=== PATIENT | male | born 1990 | race Two or more races ===

== ENCOUNTER 2020-09-19 18:26 | Emergency (ER) | payer SELFPAY ==
[~2020-09-19] VITALS: Ht 170.2 cm; Wt 68.0 kg
[2020-09-19 18:30] VITALS: BP 137/87
--- NOTE | 2020-09-19 18:35 | NUR ---
Upon triage patient stated he did not want to be seen. Stated he wanted to "leave and find the nearest bus stop." Patient is alert and oriented x4, able to answer all questions appropriately. Patient walked out of ER.
== END 2020-09-19 18:27 | disposition left against medical advice (07) ==
LOC: MED 18:26
DX: R53.1 Weakness (principal); Z53.21 Procedure and treatment not carried out due to patient leaving prior to being seen by health care provider